=== PATIENT | female | born 1965 | race Caucasian/White ===

== ENCOUNTER 2017-02-11 07:17 | Emergency (ER) | payer OTHER ==
[~2017-02-11] VITALS: Ht 154.9 cm; Wt 53.0 kg
[2017-02-11 08:15] VITALS: BP 129/77; PULSE 89; RESP 16; O2SAT 99
[2017-02-11] MEDS ORDERED: TAMO20TA6 PO (08:21)
[2017-02-11] MEDS ORDERED: SYNT88TA PO (08:21)
--- NOTE | 2017-02-11 08:48 | PD ---
HPI Chief Complaint: Eye Problems/Injury Time Seen by Provider: 08:41 Travel History International Travel<30 days: No Contact w/Intl Traveler<30days: No Traveled to known affect area: No History of Present Illness HPI This patient is visiting from [place] for the day. She does have an central station operator that she follows with their. She woke up this morning doing fine. Around 6:30 she developed some blurriness in her right eye. Her left eye vision is normal. She has no eye pain. She has no other neurologic complaint. She is no redness or foreign body sensation or pus discharge. She' s had Lasix surgery. She does not wear contact lenses or use corrective lenses. PFSH Past Medical History Hx Anticoagulant Therapy: No Cancer: Yes (breast) Cardiovascular Problems: No Chemotherapy: No Cerebrovascular Accident: No Diabetes: No Respiratory: No Tetanus Vaccination: < 5 Years ?: Unknown Past Surgical History Hysterectomy: No Other Surgery: Yes (lumpectomy) Social History Alcohol Use: Yes Tobacco Use: No Substance Use: No Allergies-Medications (Allergen,Severity, Reaction): Coded Allergies: No Known Allergies (Unverified , 02/11/17) Reported Meds & Prescriptions Reported Meds & Active Scripts Active Reported Tamoxifen (Tamoxifen Citrate) 20 Mg Tab 20 Mg PO DAILY Synthroid (Levothyroxine Sodium) 88 Mcg Tab 88 Mcg PO DAILY Review of Systems General / Constitutional: No: Fever Eyes: Positive: Blurred Vision, No: Visual changes HENT: No: Headaches Cardiovascular: No: Chest Pain or Discomfort Respiratory: No: Shortness of Breath Gastrointestinal: No: Abdominal Pain Genitourinary: No: Dysuria Musculoskeletal: No: Pain Skin: No Rash Neurologic: No: Weakness Psychiatric: No: Depression Endocrine: No: Polydipsia Hematologic/Lymphatic: No: Easy Bruising Physical Exam Narrative NECK: Symmetrical appearance, midline trachea. No mass or crepitus. Thyroid without enlargement, tenderness, or mass. SKIN: Inspection shows no rash or ulcers. Palpation shows no induration or nodules. Psych: Normal mood and affect. Normal insight and judgment. Bilateral sclerae clear Pupil function normal Extraocular muscles intact Data Data Last Documented VS Vital Signs Date Time Temp Pulse Resp B/P Pulse Ox O2 Delivery O2 Flow Rate FiO2 02/11/17 08:15 89 16 129/77 99 Room Air MDM Medical Decision Making Medical Screen Exam Complete: Yes Emergency Medical Condition: Yes Medical Record Reviewed: Yes Differential Diagnosis Corneal foreign body, vitreous hemorrhage, retinal detachment Narrative Course I have reviewed the patient's electronic medical record. Most important thing for this patient will be to contact her central station operator and get a detailed ophthalmologic evaluation No evidence of CVA There is no ophthalmologic coverage today for the emergency room. I don't think this warrants a transfer to [place] for emergent ophthalmologic evaluation. If it worsens prior to Monday she should return but I would recommend Monday morning she contact her central station operator. Visual acuity shows 20/30 on the left and 20/50 on the right Diagnosis Primary Impression: Blurry vision, right eye Additional Instructions: Follow-up with your central station operator as soon as he can arrange. Return for worsening Med/Other Pt SpecificInfo: Other Disposition: 01 DISCHARGE HOME Condition: Stable Mike Jennings MD Feb 11, 2017 08:47
== END 2017-02-11 14:00 | disposition home or self-care (01) ==
LOC: NEPE 07:17
DX: H53.8 Other visual disturbances (principal); Z85.3 Personal history of malignant neoplasm of breast
CPT/HCPCS: 99283